=== PATIENT | female | born 1965 | race Caucasian/White ===

== ENCOUNTER → 2017-02-17 | Outpatient (CLI) | payer OTHER | LOC: RAD 09:45 | PROVIDERS: ATTEND Nurse Practitioner Adult Health | DX: Z12.31 Encounter for screening mammogram for malignant neoplasm of breast (principal) ==

== ENCOUNTER → 2017-03-04 | Outpatient (CLI) | payer OTHER ==
--- NOTE | 2017-03-04 19:11 | Diagnostic Imaging Report ---
INDICATION: Abnormal mammogram. EXAMINATION: Ultrasound of the left breast. FINDINGS: The previous mammogram performed on 12/16/[address] [facility] in [place], [place] did note a partially circumscribed 8.5 x 6.9 mm mass in the 12 o'clock position of the left breast. On the diagnostic mammogram performed earlier today, that mass was not identified. On this study, there is no discrete solid or cystic mass in the superior aspect of the breast. It may have been that the density seen on the screening mammogram was related to a cyst which has subsequently resolved. Even so, it may prove worthwhile to have a short-term (6 month) followup mammogram of the left breast for continued evaluation. IMPRESSION: There is no evidence for malignancy and there is no sign of a cyst. Recommendations as above. ACR BI-RADS Category 3: Probably benign findings. Dictated by: Dictated on workstation # [id number]
--- NOTE | 2017-03-04 19:39 | Diagnostic Imaging Report ---
EXAMINATION: Unilateral Diagnostic left mammogram. INDICATION: Abnormal mammogram. The current study was also evaluated with a Computer Aided Detection (CAD) system. FINDINGS: The recent screening mammogram performed at [facility] in [place], [place] on 12/26/2016 noted an 8.5 x 6.9 cm rounded mass in the 12 o'clock position of the left breast. On this study, that mass cannot be identified with certainty. The compression views of this area and tomographic views show no evidence for malignancy. The density in question may have represented a cyst which has subsequently resolved. Even so, I would recommend that ultrasound of the left breast be performed for further study. IMPRESSION: The rounded mass in the 12 o'clock position of the left breast seen previously is no longer visualized. Ultrasound would be recommended for further study. ACR BI-RADS Category 0: Incomplete. (Needs additional imaging evaluation). Result letter will be mailed to the patient. Note: At least 10% of breast cancer is not imaged by mammography. Dictated by: Dictated on workstation # [id number]
== END ==
LOC: RAD 12:38
PROVIDERS: ATTEND Nurse Practitioner Adult Health
DX: R92.8 Other abnormal and inconclusive findings on diagnostic imaging of breast (principal)
CPT/HCPCS: 76642